=== PATIENT | female | born 1995 | race Caucasian/White ===

== ENCOUNTER 2024-04-26 07:19 | Inpatient (IN) ==
--- OUTSIDE RECORDS SUMMARY | 2024-04-26 07:37 | External Medical Summary | Summary of Care ---
Author Name Unknown Organization [facility] [address] [address] Phone [phone] Care Team Providers Care Radiographic Technologist Name Role Phone Unavailable Primary Care Provider Unavailabl e Encounter Details Date Type Department Care Team (Late st Contact Info) Description 04/24/2024 Telephone Gynecology/Obstetrics [facility] [address] [place] [address] Vanessa Jackson PA-C [address] [place] [address] Allergies No known active allergiesdocumented as of this encounter (statuses as of 04/25/2024) Medications 28-0.8 MG Oral Tablet Take by mouth. Activ e Breast PumpIndication s:Supervision of normal first , antepartum Use as directed while 1 Each Active documented as of this encounter (statuses as of 04/25/2024) Active Problems Problem Noted Date Diagnosed Date Supervision of normal first , antepartu m 09/29/2023 History of anorexia nervosa 09/29/2023 Overview (09/29/2023): Pt agreeable to weight at each visit, but does not want to know number unless medically necessary to discuss. Estimated Date of Delivery Comme nts Yes 04/28/2024 Based on Ultraso und documented as of this encounter (statuses as of 04/25/2024) Immunizations Name Administration Dates Next Due TDAP, Age 7 and older, IM (Adacel) 02/11/2024 documented as of this encounter Social History Tobacco Use Types Packs/Day Years Used Date Smoking Tobacco: Never Smokeless Tobacco: Never Alcohol Use Standard Drinks/Week Comments Not Currently 0 (1 standard drink = 0.6 oz pur e alcohol) Hunger Vital Sign Answer Date Recorded Within the past 12 months, y ou worried that your food would run out before you got the money to buy more. Never true 12/27/19 24 Within the past 12 months, t he food you bought just didn't last and you didn't have money to get more. Never true 12/27/2023 [place] Depression Scale Answer Date Recorded [place] Depression Scale Total 8 04/03/2024 The thought of harming myself has occurred to me . Never 04/03/2024 Childcare Answer Date Recorded Do you feel overwhelmed with taking care of a child, family member or friend? No 12/27/2023 Does your family need help f inding childcare? (Household - for ages 0-17 years) Not on file 12/27/2023 Clothing Answer Date Recorded Have you been unable to get clothing when it was really needed? No 12/27/2023 Is your family able to get c lothes or diapers when needed? (Household - for ages 0-17 years) Not on file 12/27/2023 Personal Safety Answer Date Recorded Do you feel unsafe or have concerns for your saf ety? No 12/27/2023 Do you have concerns for you r family's safety? (Household - for ages 0-17 years) Not on file 12/27/2023 Utilities Answer Date Recorded Do you have trouble paying y our heating, water, or electric bill? No 12/27/2023 Is your family able to pay t he heat, water, or electric bill? (Household - for ages 0-17 years) Not on file 12/27/2023 Does your family have access to good internet? (Household - for ages 0-17 years) Not on file 12/27/2023 Employment Status Answer Date Recorded Are you unemployed or without regular income? No 12/27/2023 Does the household have a re gular source of income? (Household - for ages 0-17 years) Not on file 12/27/2023 Social Connections Answer Date Recorded How often do you feel lonely or isolated from th ose around you? Never 12/27/2023 Financial Resource Strain Answer Date R ecorded Do you have any trouble payi ng for your medications, or do you think you might in the future? No 12/27/2023 Does your family have troubl e paying for medicine? (Household - for ages 0-17 years) Not on file 12/27/2023 Transportation Needs Answer Date Record ed Do you have trouble getting a ride to medical visits or work? (Adult - for ages 18 years and over) Not on file 12/27/2023 Does your family have a hard time getting a ride to doctors visits? (Household - for ages 0-17 years) Not on file 12/27/2023 Has lack of transportation k ept you from medical appointments, meetings, work, or from getting things needed for daily living? Check all that apply. No 12/27/2023 Do you (or your family) have trouble finding or paying for a ride (transportation)? (Household - for ages 0-17 years) Not on file 12/27/2023 Housing Stability Answer Date Recorded Do you currently live in a s helter or have no steady place to sleep at night? No 12/27/2023 Do you think you are at risk of becoming homeless? (Adult - for ages 18 years and over) Not on file 12/27/2023 Does your family worry about paying for your home or becoming homeless? (Household - for ages 0-17 years) Not on file 1 02/25/2023 Are you homeless or worried that you might be in the future? No 12/27/2023 Are you (or your family) floyd eless or worried that you might be in the future? (Household - for ages 0-17 years) Not on file Food Insecurity Answer Date Recorded Do you need food for this week? No 12/27/2023 Are you able to get enough f ood for your family? (Household - for ages 0-17 years) Not on file 12/27/2023 Does your family need food t his week? (Household - for ages 0-17 years) Not on file 12/27/2023 Do you always have enough fo od for your family? (Household - for ages 0-17 years) Not on file 12/27/2023 Food Insecurity Answer Date Recorded Within the past 12 months, y ou worried that your food would run out before you got the money to buy more. Never true 12/27/19 24 Within the past 12 months, t he food you bought just didn't last and you didn't have money to get more. Never true 12/27/2023 Do you need food for this week? No 12/27/2023 Estimated Date of Delivery Comme nts Yes 04/28/2024 Based on Ultraso und Sex and Gender Information Value Date Recorded Sex Assigned at Female 10/13/2023 9:45 AM EDT Legal Sex Female 8:33 AM EDT Gender Identity Female 10/13/2023 9:45 AM EDT Sexual Orientation Straight 10/13/2023 9: 45 AM EDT documented as of this encounter Miscellaneous Notes * Telephone Encounter - Narda Kovacs LPN - 04/25/2024 2:15 PM EDT TIGERTEXT sent to Dr London so he is aware. * Telephone Encounter - Meron Spangler RN - 04/25/2024 1:11 PM EDT Pt returned call. Aware of provider's message and date change for IOL. * Telephone Encounter - Narda Kovacs LPN - 04/25/2024 12:56 PM EDT left message for patient to call office * Telephone Encounter - Shan Trimble MD - 04/25/2024 12:51 PM EDT Yes I called L&D and they moved her to tomorrow Please let her and Dr traveling construction superintendent know Thanks * Telephone Encounter - Narda Kovacs LPN - 04/25/2024 10:33 AM EDT Patient called in saying IOL needs moved up. Can she be scheduled anytime now? * Telephone Encounter - Areli Cagle LPN - 04/24/2024 3:32 PM EDT Patient returned call, she is going to head to L&D * Telephone Encounter - Vanessa Jackson PA-C - 04/24/2024 3:03 PM EDT Sending as FYI as patient is going to call back. If she decides to present to L&D can you just make them aware? If not, she will need scheduled back in 1-[address] Blanco's advise. * Telephone Encounter - Vanessa Jackson PA-C - 04/24/2024 3:01 PM EDT Called patient. Patient reports took tylenol after appointment, ate lunch and drank a lot of water and still has mild headache. Reviewed message regarding presentation to L&D today vs return in 1-2 days for BP check. Patient was going to discuss with partner and plan to call office back here shortly regarding her plan. * Telephone Encounter - Shan Trimble MD - 04/24/2024 2:48 PM EDT P/C ratio pending Isolated slightly increased ALT at 43 ( <35 N), normal AST She may come to L&D if she is not feeling well or BARTHOLOMEW's this evening, if not she may f/u in office in 1-2 days Thanks * Telephone Encounter - Narda Kovacs LPN - 04/24/2024 12:00 PM EDT Vanessa requesting you review patients lab results from today for advice. Has headache with black spots since Wednesday. Tylenol helping minimally, but not taking regularly. Patient reports home blood pressures 130/80s and 120/90 over the weekend. Was in touch with traveling construction superintendent over the weekend, but BP normalized with recheck. Bp in office today 128/88. No protein in site dip but ALT returned elevated. Patient is returning for another OV but with today's labs does she need L+D visit today? documented in this encounter Plan of Treatment Upcoming Encounters Date Type Department Care Team (Late st Contact Info) Description 04/26/2024 9:00 AM EDT Office Visit Gynecology/Obstetrics [facility] [address] [place] [address] Vanessa Jackson PA-C [address] [place] [address] Health Maintenance Due Date Last Done Comments Depression Screening 2008 Hepatitis B Vaccine (1 of - 19+ 3-dose series) 11/11/2015 Pap Smear 2017 COVID-19 Vaccine (2023-2 5 season) 2023 06/03/2020, 05/13/2020 Influenza Vaccine (FLU shot) (#1) 2023 DTap/Tdap Vaccines (2 - Td o r Tdap) 02/10/2034 02/11/2024 HPV (Gardasil) Vaccine Aged Out No lo nger eligible based on patient's age to complete this topic MENINGOCOCCAL (MENACTRA/MENVEO) Aged Out No longer eligible b ased on patient's age to complete this topic Meningitis B Vaccine (Bexsero/Trumemba) Aged Out No longer eligible b ased on patient's age to complete this topic Pneumococcal Vaccine: Pediatrics (0 to 5 Years) and At-Risk Patients (6 to 18 Years and 19+ Years) Aged Out No longer eligible based on patient's age to complete this topic documented as of this encounter Medical Devices Not on filedocumented as of this encounter
--- OUTSIDE RECORDS SUMMARY | 2024-04-26 07:37 | External Medical Summary | Summary of Care ---
Author Name Unknown Organization [facility] Address [address] [address] Phone [phone] Care Team Providers Care Consulting Systems Engineer Name Role Phone Unavailable Primary Care Provider Unavailabl e Encounter Details Date Type Department Care Team (Late st Contact Info) Description 04/24/2024 Telephone Gynecology/Obstetrics [facility] [address] [place] [address] Vanessa Jackson PA-C [address] [place] [phone] Allergies No known active allergiesdocumented as of [...] money to get more. Never true 12/27/2023 [place] Depression Scale Answer Date Recorded [place] Depression Scale Total 8 04/03/2024 The thought [...] encounter Miscellaneous Notes * Telephone Encounter - Areli Cagle LPN [...] over the weekend. Was in touch with recreation program specialist over the weekend, but BP normalized with recheck. Bp in office today 128/88. No protein in site dip but ALT returned elevated. Patient is returning for another OV but with today's labs does she need L+D visit today? documented in this encounter Plan of Treatment Upcoming Encounters Date Type Department Care Team (Late st Contact Info) Description 04/27/2024 8:15 AM EDT Office Visit Gynecology/Obstetrics [facility] [address] [place] [address] Elfego Medel MD [address] [place] [address] Health Maintenance Due Date Last Done Comments Depression Screening 2008 Hepatitis B Vaccine (1 of 3 - 19+ 3-dose series) 11/11/2015 Pap Smear [...]
--- OUTSIDE RECORDS SUMMARY | 2024-04-26 07:37 | External Medical Summary | Summary of Care ---
Author Name Unknown Organization [facility] Address [address] [facility] [place] [address] Phone [phone] Care Team Providers Care Architectural Drafter Name Role Phone Unavailable Primary Care Provider Unavailabl e Encounter Details Date Type Department Care Team (Late st Contact Info) Description 04/24/2024 Telephone Gynecology/Obstetrics [facility] [address] [place] [address] Vanessa Jackson PA-C [address] [place] [address] Allergies No known active allergiesdocumented as of [...] money to get more. Never true 12/27/2023 [place] Depression Scale Answer Date Recorded [place] Depression Scale Total 8 04/03/2024 The thought [...] to tomorrow Please let her and Dr staff electronic warfare officer know Thanks * Telephone Encounter - Narda [...] over the weekend. Was in touch with staff electronic warfare officer over the weekend, but BP normalized with [...] Gynecology/Obstetrics [facility] [address] [place] [address] Vanessa Jackson PA-C [address] [address] Health Maintenance Due Date Last Done Comments [...]
--- OUTSIDE RECORDS SUMMARY | 2024-04-26 07:37 | External Medical Summary | Summary of Care ---
Author Name Unknown Organization [facility] Address [address] [facility] [facility] [address] Phone [phone] Care Team Providers Care Folder Tier Name Role Phone Unavailable Primary Care Provider Unavailabl e Encounter Details Date Type Department Care Team (Late st Contact Info) Description 04/24/2024 Telephone Gynecology/Obstetrics [facility] [address] [place] [address] Vanessa Jackson PA-C [address] [address] Allergies No known active allergiesdocumented as of [...] money to get more. Never true 12/27/2023 [place] Depression Scale Answer Date Recorded [place] Depression Scale Total 8 04/03/2024 The thought [...] encounter Miscellaneous Notes * Telephone Encounter - Meron Spangler RN [...] to tomorrow Please let her and Dr manager personnel selection know Thanks * Telephone Encounter - Narda [...] over the weekend. Was in touch with manager personnel selection over the weekend, but BP normalized with [...] 04/26/2024 9:00 AM EDT Office Visit Gynecology/Obstetrics [facility] [address] [place] [address] Vanessa Jackson PA-C [address] [address] Health Maintenance Due Date Last Done Comments Depression Screening 2008 Hepatitis B Vaccine (1 of 3 - 19+ 3-dose series) 11/11/2015 Pap Smear 2017 COVID-19 Vaccine ( - 2023-2 5 season) 2023 06/03/2020, 05/13/2020 Influenza Vaccine [...]
--- OUTSIDE RECORDS SUMMARY | 2024-04-26 07:37 | External Medical Summary | Summary of Care ---
Author Name Unknown Organization [facility] Address [address] [facility] [place] [address] Phone [phone] Care Team Providers Care Well Site Drilling Engineer Name Role Phone Unavailable Primary Care Provider Unavailabl e Encounter Details Date Type Department Care Team (Late st Contact Info) Description 04/24/2024 Telephone Gynecology/Obstetrics [facility] [address] [place] [address] Vanessa Jackson PA-C [address] [place] [address] Allergies No known active allergiesdocumented as of [...] money to get more. Never true 12/27/2023 [place] Depression Scale Answer Date Recorded [place] Depression Scale Total 8 04/03/2024 The thought [...] to tomorrow Please let her and Dr director of clinical education know Thanks * Telephone Encounter - Narda [...] over the weekend. Was in touch with director of clinical education over the weekend, but BP normalized with [...] Gynecology/Obstetrics [facility] [address] [place] [address] Vanessa Jackson PA-C [address] [place] [address] Health Maintenance Due Date Last Done Comments [...]
--- OUTSIDE RECORDS SUMMARY | 2024-04-26 07:37 | External Medical Summary | Summary of Care ---
Author Name Unknown Organization [facility] Address [address] [address] Phone [phone] Care Team Providers Care Carpenter Helper Hardwood Flooring Name Role Phone Unavailable Primary Care Provider Unavailabl e Encounter Details Date Type Department Care Team (Late st Contact Info) Description 04/24/2024 Telephone Gynecology/Obstetrics [facility] [address] [place] [address] Vanessa Jackson PA-C [address] [place] [address] Allergies No known active allergiesdocumented as of [...] money to get more. Never true 12/27/2023 [place] Depression Scale Answer Date Recorded [place] Depression Scale Total 8 04/03/2024 The thought [...] to tomorrow Please let her and Dr certifed refrigeration operator know Thanks * Telephone Encounter - Narda [...] over the weekend. Was in touch with certifed refrigeration operator over the weekend, but BP normalized with [...] Gynecology/Obstetrics [facility] [address] [place] [address] Vanessa Jackson PA-C [address] [address] Health Maintenance Due Date Last Done Comments [...]
--- OUTSIDE RECORDS SUMMARY | 2024-04-26 07:37 | External Medical Summary | Summary of Care ---
Author Name Unknown Organization [facility] Address [address] [place] [address] Phone [phone] Care Team Providers Care Thermodynamics Teacher Name Role Phone Unavailable Primary Care Provider Unavailabl e Encounter Details Date Type Department Care Team (Late st Contact Info) Description 04/24/2024 Telephone Gynecology/Obstetrics [facility] [address] [place] [address] Vanessa Jackson PA-C [address] [address] Allergies No known active allergiesdocumented as of [...] money to get more. Never true 12/27/2023 [place] Depression Scale Answer Date Recorded [place] Depression Scale Total 8 04/03/2024 The thought [...] to tomorrow Please let her and Dr cotton grower know Thanks * Telephone Encounter - Narda [...] 1-2 days Thanks * Telephone Encounter - Nrada Kovacs LPN - 04/24/2024 12:00 PM EDT Vanessa requesting you review patients lab results from today for advice. Has headache with black spots since Wednesday. Tylenol helping minimally, but not taking regularly. Patient reports home blood pressures 130/80s and 120/90 over the weekend. Was in touch with cotton grower over the weekend, but BP normalized with [...] Gynecology/Obstetrics [facility] [address] [place] [address] Vanessa Jackson PA-C [address] [address] Health Maintenance Due Date Last Done Comments [...]
--- OUTSIDE RECORDS SUMMARY | 2024-04-26 07:37 | External Medical Summary | Summary of Care ---
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 Activ e Breast PumpIndication s:Supervision of normal first , antepartum Use as directed while 1 Each Active documented as of this encounter (statuses as of 04/24/2024) Active Problems Problem Noted Date Diagnosed Date Supervision of normal first , antepartu m 09/29/2023 History of anorexia nervosa 09/29/2023 Overview (09/29/2023): Pt agreeable to weight at each visit, but does not want to know number unless medically necessary to discuss. Estimated Date of Delivery Comme nts Yes 04/28/2024 Based on Ultraso und documented as of this encounter (statuses as of 04/24/2024) Immunizations Name Administration Dates Next Due TDAP, [...] money to get more. Never true 12/27/2023 [place] Depression Scale Answer Date Recorded [place] Depression Scale Total 8 04/03/2024 The thought [...] AM EDT documented as of this encounter Last Filed Vital Signs Vital Sign Reading Time Taken Comments Blood Pressure 128/88 04/24/2024 9:43 AM EDT Pulse - - Temperature - - Respiratory Rate - - Oxygen Saturation - - Inhaled Oxygen Concentration - - Weight 78.8 kg (173 lb 12.8 oz) 04/24/2024 9:43 AM EDT Height - - Body Mass Index 31.79 03/31/2024 1:08 PM EST documented in this encounter Progress Notes * Vanessa Jackson PA-C - 04/24/2024 9:51 AM EDT 39w3d Concerns for elevated Bps over weekend d/t severe headache. Has neighbor who was nurse check. 130/80s with two of the checks. One approx 120/90. Called instrumentation supervisor and advised check in an hour. She did and normal. Pt reports tylenol helping with headache but has not fully gone away. Seeing black spots in vision at times. Denies RUQ, epigastric pain, CP, or SOB. Blood pressure today 128/88. Has not taken tylenol today. Took 650 mg last night. Admits typically drinks caffeine but has not over last few days. Bought coffee today but has not drank. Denies VB, LOF, contractions. Has had milky white discharge for over a week. Was evaluated last week and ROM + negative, exam without pooling. Pt states no increase in discharge or change. Denies anygush, watery or clear discharge. Was concerned about 10 movements in 2 hours last week, got them but took some time. Pt states easily getting 10 movements today. No concerns for decreased FM. Would like cervical check and if able membrane sweep. Cervix posterior. Unable to perform membrane sweep. No proteins by site dip. Advised labs today. RTC in 3 days for [place]/BP check PEC precautions reviewed with her Vanessa Jackson PA-C * Nydia Rose CMA - 04/24/2024 9:43 AM EDT 39w3d Requesting cervical check and possible membrane sweep. documented in this encounter Plan of Treatment Upcoming Encounters Date Type Department Care Team (Late st Contact Info) Description 04/27/2024 8:15 AM EDT Office Visit Gynecology/Obstetrics [facility] [address] [place] [id number] Elfego Medel MD [address] [place] [phone] Pending Results Name Type Priority Associated Diagnoses Date /Time PROTEIN/ CREATININE RATIO, URINE Lab Routine Supervision of normal first , antepartum 04/24/2024 10:13 AM EDT Health Maintenance Due Date Last Done Comments [...] Not on filedocumented as of this encounter Procedures Procedure Name Priority Date/Time Associated Diagnosis Comments COMPREHENSIVE METABOLIC PANEL Routine 04/24/2024 10:28 AM EDT Supervision of normal first , antepartum CBC Routine 04/24/2024 10:28 AM EDT Supervision of normal first , antepartum URINALYSIS OBSTETRICS, POINT OF CARE ITA 04/24/2024 9:52 AM EDT documented in this encounter Results * CBC (04/24/2024 10:28 AM EDT) WBC 7.68 4.00 - 10.80 K/uL 04/24/2024 10:36 AM EDT [facility] [place] [facility] RBC 4.25 3.85 - 5.15 M/uL 04/24/2024 10:36 AM EDT [facility] [place] [facility]10 HGB 12.5 12.0 - 15.3 g/dL 04/24/2024 10:36 AM EDT [facility] [place] [facility]10 HCT 37.7 36.0 - 45.2 % 04/24/2024 10:36 AM EDT [facility] [place] [facility]10 MCV 88.7 81.5 - 97.5 fL 04/24/2024 10:36 AM EDT [facility] [place] [facility]10 MCH 29.4 27.0 - 34.0 pg 04/24/2024 10:36 AM EDT [facility] [place] [facility]10 MCHC 33.2 32.0 - 36.0 g/dL 04/24/2024 10:36 AM EDT [facility] [place] [facility]10 RDW 13.6 11.5 - 15.5 % 04/24/2024 10:36 AM EDT [facility] [place] [facility]10 PLT 216 140 - 400 K/uL 04/24/2024 10:36 AM EDT [facility] [place] [facility]10 MPV 12.1 6.6 - 11.1 fL 04/24/2024 10:36 AM EDT [facility] [place] [facility]10 Blood Venous blood specimen / Unknown Venipuncture / Unknown 04/24/2024 10:28 AM EDT 04/24/2024 10:28 AM EDT us Vanessa Jackson PA-C LAB BLOOD ORDERABLES Final R esult [facility] [place] [facility] [address] [facility] [place] [address] * (ABNORMAL) COMPREHENSIVE METABOLIC PANEL (04/24/2024 10:28 AM EDT) BUN 5(L) 6 - 20 mg/dL 04/24/2024 11:36 AM EDT [facility] [place] [facility]10 CREATININE 0.6 0.5 - 1.0 mg/dL 04/24/2024 11:36 AM EDT [facility] [place] [facility]10 EGFR >90 >=60 mL/min 04/24/2024 11:36 AM EDT [facility] [place] [facility]10 Comment:eGFR is calculated b ased on the CKD-EPI 2020 equation. SODIUM 138 135 - 146 mmol/L 04/24/2024 11:36 AM EDT [facility] [place] [facility]10 POTASSIUM 4.8 3.5 - 5.1 mmol/L 04/24/2024 11:36 AM EDT [facility] [place] [facility]10 CHLORIDE 101 98 - 107 mmol/L 04/24/2024 11:36 AM EDT [facility] [place] [facility]10 CO2 24 22 - 32 mmol/L 04/24/2024 11:36 AM EDT [facility] [place] [facility]10 ANION GAP 13 7 - 15 mmol/L 04/24/2024 11:36 AM EDT [facility] [place] [facility]10 GLUCOSE 74 70 - 120 mg/dL 04/24/2024 11:36 AM EDT [facility] [place] [facility]10 Albumin 3.6(L) 3.8 - 5.0 g/dL 04/24/2024 11:36 AM EDT [facility] [place] [facility]10 AST 28 10 - 35 U/L 04/24/2024 11:36 AM EDT [facility]10 Alkaline Phosphatase 186(H) 35 - 130 U/L 04/24/2024 11:36 AM EDT [facility] 57-10 Bilirubin, Total <0.2 <=1.2 mg/dL 04/24/2024 11:36 AM EDT [facility] 57-10 CALCIUM 9.5 8.4 - 10.2 mg/dL 04/24/2024 11:36 AM EDT [facility] 57-10 Protein 6.7 6.0 - 8.3 g/dL 04/24/2024 11:36 AM EDT [facility] [place] [facility]10 ALT 43(H) 10 - 35 U/L 04/24/2024 11:36 AM EDT [facility] 57-10 Blood Venous blood specimen / Unknown Venipuncture / Unknown 04/24/2024 10:28 AM EDT 04/24/2024 10:28 AM EDT us Vanessa Jackson PA-C LAB BLOOD ORDERABLES Final R esult [facility] [place] [facility]10 [address] [facility] [place] [address] * (ABNORMAL) URINALYSIS OBSTETRICS, POINT OF CARE (04/24/2024 9:52 AM EDT) Color, Urine Yellow Light Yellow, Yellow 04/24/2024 9:54 AM EDT [facility] [place] [facility]10 Clarity, Urine Clear Clear 04/24/2024 9:54 AM EDT [facility] [place] [facility]10 Glucose, Urine Negative Negative mg/dL 04/24/2024 9:54 AM EDT [facility] [place] [facility]10 Bilirubin, Urine Negative Negative 04/24/2024 9:54 AM EDT [facility] [place] [facility]10 Ketone, Urine Negative Negative mg/dL 04/24/2024 9:54 AM EDT [facility] [place] [facility]10 Specific Candor, Urine 1.020 1.003 - 1.030 04/24/2024 9:54 AM EDT [facility] [place] [facility]10 Blood, Urine Negative Negative 04/24/2024 9:54 AM EDT [facility] [place] [facility]10 pH, Urine 6.5 5.0, 5.5, 6.0, 6.5, 7.0, 7.5 units 04/24/2024 9:54 AM EDT [facility] [place] [facility]10 Protein, Urine Negative Negative mg/dL 04/24/2024 9:54 AM EDT [facility] [place] [facility]10 Urobilinogen, Urine 0.2 0.2, 1.0 mg/dL 04/24/2024 9:54 AM EDT [facility] [place] [facility]10 Nitrite, Urine Negative Negative 04/24/2024 9:54 AM EDT [facility] [place] [facility]10 Esterase, Urine Trace(A) Negative 04/24/2024 9:54 AM EDT [facility] [place] [facility]10 Urine 04/24/2024 9:52 AM EDT 04/24/2024 9:54 AM EDT Vanessa Jackson PA-C LAB POINT OF CARE TE ST DOCKED DEVICE UNSOLICITED RESULTS Final Result [facility] [place] [facility] [address] [facility] [place] [address] documented in this encounter Visit Diagnoses Diagnosis Supervision of normal first , antepartum- Primary History of anorexia nervosa Personal history of other mental disorder documented in this encounter
--- OUTSIDE RECORDS SUMMARY | 2024-04-26 07:38 | External Medical Summary ---
Author Name Unknown Address Unknown Organization [id number]:[facility] [address] [place] [address] Laboratory Report Ordering Provider Test Date Status ALFREDKIERRA 04/24/2024 10:13:21 Final Normal: <150 mg/ g creatinine
High: 150-500 mg/g creatinine
Very High: >500 mg/g creatinine
Nephrotic: >3000 mg/g creatinine Observation Date Value Abnormality Reference (Units ) Status Protein/Creatinine [Ratio] in Urine 04/24/2024 10:13:21 127 <150 (mg/g ) Final Protein, Urine 04/24/2024 10:13:21 10 (mg/dL) Final Creatinine, Urine 04/24/2024 10:13:21 79 (mg/dL) Final Performing Location [facility] - [address] [place] [address]
[2024-04-26] MEDS ORDERED: OXYTOCIN 30 UNITS/NSS 30 UNITS/500 ML BAG IV PRN ×2 (09:01→23:31)
[2024-04-26] MEDS ORDERED: LIDOCAINE 1% LOCAL 20 ML VIAL INFIL PRN (09:01)
--- NOTE | 2024-04-26 09:13 | History & Physical Report ---
Date of Service April 26, 2024 Assessment & Plan Admission and Anticipated Discharge Date Admission Date: April 26, 2024 History of Present Illness Chief Complaint: induction of labor Primary Care Provider: NO PCP 28 F P0000 at 39.5 weeks presents to L&D for induction due to elevated BP in the office. GBS is negative. Allergies Allergy/AdvReac Type Severity Reaction Status Date / Time No Known Allergies Allergy Unverified 04/26/24 09:02 Home Medications Medication Instructions Recorded Confirmed Type vits no.124-ferrous fum 1 tab PO DAILY 04/26/24 04/26/24 History 27 mg iron-folic acid 800 mcg tablet ( Vitamin) Patient History Family History Mother Rheumatoid arthritis Substance use disorder Father Hypertension Sister Age: 24 No problems noted. Grandmother (Maternal) Ovarian cancer Substance use disorder Grandfather (Maternal) Diabetes Type 2 diabetes Coronary heart disease Grandmother (Paternal) Coronary heart disease Dyslipidemia Cholesterol in 600s Myocardial infarction Fatal [place] age 33 Social History Smoking Status: Never smoker Second Hand Exposure: No; Hx Alcohol Use: No Hx Substance Use: No Preferred Language: Macedonian Communication Ability: Effective Lumber Sorter Machine Required: No Beliefs That Will Affect Care: None marital status: Current Living Situation: Spouse Current Living Situation Comment: Lives w/parents but stays most of the time with supportive boyfriend/partne current occupational status: employed 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 Other Information That Helps Us Care for You: No Feels Safe at Home: Yes Safety Concerns: Feels Safe At This Time Physical Activity Frequency: 5-6 Times per Week Assistive Devices: None OB History primip MINE EXPERT History neg Review of Systems All systems reviewed & are unremarkable except as noted in HPI & below Physical Exam Constitutional: WD/WN, vitals as above Eyes: PERRL, conjunctivae normal, anicteric sclerae Respiratory: normal respiratory effort, lungs clear to auscultation Cardiovascular: Rate/Rhythm: regular rate and regular rhythm Gastrointestinal (Abdomen): Inspection/Auscultation: abdomen normal to inspection Musculoskeletal: Extremities: extremities normal to inspection Skin: no rashes, warm and dry Neurologic: patellar DTR's 2+ bilat, sensation intact Psychiatric: A+Ox3, euthymic affect Genitourinary: Manual OB Exam: + cervical dilation fingertip, + cervical effacement 50% and + station high OB Exam Monitor Tracing: + external FHT monitor used, + external uterine monitor used, + category I and + normal FHT variability cervix L/C/T. posterior/firm. EFW 7.5 lbs. Will start induction with Cervidil for cervical ripening. Results & Data Vital Signs (Past 12 Hours) Vital Signs Temp Pulse Resp BP 04/26/24 07:33 36.7 C 18 04/26/24 07:30 85 124/80 Monitoring External Monitor Cat 1
[2024-04-26 09:35] LABS: Hematocrit (blood only) 34.8 % (37.0-47.0); Hemoglobin 11.6 g/dl (12.0-16.0); Mean Corpuscular Hemoglobin 28.5 pg (25.0-34.0); Mean Corpuscular Hgb Conc 33.3 g/dL (32.0-36.0); Mean Corpuscular Volume 85.5 fL (80.0-100.0); Platelet Count 216 K/uL (130-400); RDW Coefficient of Variation 13.2 % (11.5-14.5); RDW Standard Deviation 41.1 fL (36.4-46.3); Red Blood Count 4.07 M/uL (4.20-5.40); White Blood Count 9.42 K/ul (4.8-10.8)
[2024-04-26] MEDS: DINOPROSTONE 10 MG INSERT PV ONE (09:35)
--- NOTE | 2024-04-26 09:42 | Labor Progress Brief Note ---
Date of Service April 26, 2024 Assessment & Plan Admission and Anticipated Discharge Date Admission Date: April 26, 2024 Physical Exam Genitourinary: OB Exam Monitor Tracing: + external FHT monitor used, + external uterine monitor used, + category I and + normal FHT variability Cervidil placed vaginally Results & Data Vital Signs (Past 12 Hours) Vital Signs Temp Pulse Resp BP 04/26/24 07:33 36.7 C 18 04/26/24 07:30 85 124/80
[2024-04-26] MEDS: LACTATED RINGER'S 1,000 ML IV PRN (14:55)
[2024-04-26] MEDS: BUTORPHANOL TARTRATE 1 MG/ML VIAL IV ONE ×2 (15:45→18:10)
[2024-04-26] MEDS ORDERED: NALBUPHINE HCL INJ 10 MG/ML AMP IV PRN (19:39)
[2024-04-26] MEDS ORDERED: diphenhydrAMINE 50 MG/ML VIAL IV PRN (19:39)
[2024-04-26] MEDS ORDERED: SODIUM CHLORIDE 0.9% PF INJ 10 ML VIAL EPI PRN (19:39)
[2024-04-26] MEDS ORDERED: fentaNYL citrate PF 100 MCG/2 ML VIAL EPI PRN (19:39)
[2024-04-26] MEDS ORDERED: NALOXONE HCL 0.4 MG/1 ML VIAL/CARP IV PRN (19:39)
[2024-04-26] MEDS ORDERED: NALOXONE HCL 1 MG in SODIUM CHLORIDE 0.9% 1,000 ML IV PRN (19:39)
[2024-04-26] MEDS ORDERED: LIDOCAINE 2% MPF LOCAL 5 ML VIAL EPI PRN (19:39)
[2024-04-26] MEDS ORDERED: ROPIVACAINE 0.5% PF 5 MG/ML 20 ML VIAL EPI PRN (19:39)
[2024-04-26] MEDS ORDERED: ePHEDrine sulfate 50 MG/ML AMP IV PRN (19:39)
[2024-04-26] MEDS ORDERED: BUPIVACAINE 0.25% PF 30 ML VIAL EPI PRN (19:39)
--- NOTE | 2024-04-26 19:43 | Anesthesiology Consultation ---
Date of Service April 26, 2024 Assessment & Plan Chart Review Chart Review: Patient NOT seen in Pre Admission Testing and Acceptable Risk for Labor Epidural Consults Requested none ASA ASA2 Proposed Anesthesia Anesthesia Type: Labor Epidural Risk / Benefits Reviewed With: PT / POA / Parent / Guardian, Accepts Plan and Informed Consent Obtained History Height/Weight Height: 5 ft 2 in Weight: 78.471 kg Allergies Allergy/AdvReac Type Severity Reaction Status Date / Time No Known Allergies Allergy Unverified 04/26/24 09:02 Medications Home Medications Medication Instructions Recorded Confirmed Last Taken vits no.124-ferrous fum 1 tab PO DAILY 04/26/24 04/26/24 Unknown 27 mg iron-folic acid 800 mcg tablet ( Vitamin) Active Medications Generic Name Dose Route Start Last Admin Trade Name Freq PRN Reason Stop Dose Admin Lactated Ringer's 1,000 mls @ 125 mls/hr 04/26/24 09:01 04/26/24 19:00 Lr IV 04/27/24 09:00 999 mls/hr .Q8H PRN Infusion L&D Protocol Protocol NPO Date Last Intake of Fluids: 04/26/24 Time Last Intake of Fluids: 19:30 Date Last Intake of Solids: 04/26/24 Time Last Intake of Solids: 11:00 Exercise / Class Metabolic Activity 1 > 8 Run/Swim/Ski/Tennis Past Family History Family History Mother Rheumatoid arthritis Substance use disorder Father Hypertension Sister Age: 24 No problems noted. Grandmother (Maternal) Ovarian cancer Substance use disorder Grandfather (Maternal) Diabetes Type 2 diabetes Coronary heart disease Grandmother (Paternal) Coronary heart disease Dyslipidemia Cholesterol in 600s Myocardial infarction Fatal CT age 32 Past Anesthesia History No Hx of Anesthesia Complications and No Family Hx of Anesthesia Complications History of PONV No Hx of PONV and No Hx of Motion Sickness Social History Smoking Status: Never smoker Hx Alcohol Use: No Hx Substance Use: No substance use type: does not use Review of Systems ROS Unobtainable: All systems reviewed & are unremarkable except as noted in HPI & below Physical Exam Vital Signs Last Vital Signs Temp 36.7 C 04/26/24 14:52 Pulse 86 04/26/24 19:38 Resp 16 04/26/24 18:10 BP 123/61 04/26/24 19:13 Pulse Ox 93 04/26/24 19:38 ENMT Mouth: no TMJ abnormality Thyromental Distance: > or= 3.5 Finger Breadths Mallampati Class: II Neck normal visual inspection and trachea midline; neck extension not limited Respiratory normal respiratory effort Auscultation: lungs clear to auscultation bilaterally Cardiovascular Rate/Rhythm: regular rate and regular rhythm Heart Sounds: no murmur Musculoskeletal Spine: normal cervical ROM Extremities: full ROM of extremities Neurologic moves all extremities Psychiatric Orientation: alert and oriented x 3 Testing Laboratory Results 04/26/24 09:13
[2024-04-26] MEDS: fentANYL 2 MCG/ML BUPIVacaine 0.125%-NSS 100ML BAG EPI PRN (19:57)
[2024-04-26] MEDS: BUPIVACAINE 0.25% PF 30 ML VIAL EPI STA (19:57)
[2024-04-26] MEDS: fentaNYL citrate PF 100 MCG/2 ML VIAL EPI STA (19:57)
--- NOTE | 2024-04-26 20:15 | Labor Progress Brief Note ---
Date of Service April 26, 2024 Assessment & Plan Admission and Anticipated Discharge Date Admission Date: April 26, 2024 Physical Exam Genitourinary: Manual OB Exam: + cervical dilation 8 cm, + cervical effacement 100%, + station 0 and + amniotic fluid clear OB Exam Monitor Tracing: + external FHT monitor used, + external uterine monitor used, + category I and + normal FHT variability AROM with Amni-hook bloody show with clear fluid noted Results & Data Vital Signs (Past 12 Hours) Vital Signs Temp Pulse Resp BP Pulse Ox 04/26/24 20:09 106 H 04/26/24 20:09 109/68 04/26/24 20:08 96 04/26/24 20:08 101 H 04/26/24 20:03 96 04/26/24 20:03 118 H 04/26/24 20:02 81 04/26/24 20:02 120/72 04/26/24 20:00 93 H 04/26/24 20:00 113/74 04/26/24 19:58 98 04/26/24 19:58 79 04/26/24 19:58 149/65 H 04/26/24 19:56 87 04/26/24 19:56 137/68 04/26/24 19:53 96 04/26/24 19:53 79 04/26/24 19:48 98 04/26/24 19:48 76 04/26/24 19:43 100 04/26/24 19:43 84 04/26/24 19:38 93 04/26/24 19:38 86 04/26/24 19:37 93 04/26/24 19:37 75 04/26/24 19:33 97 04/26/24 19:33 91 H 04/26/24 19:13 96 H 04/26/24 19:13 123/61 04/26/24 18:44 67 04/26/24 18:44 99/58 L 04/26/24 18:10 16 04/26/24 18:10 16 04/26/24 18:10 85 04/26/24 18:10 120/58 L 04/26/24 17:19 69 04/26/24 17:19 108/63 04/26/24 16:49 85 04/26/24 16:49 114/57 L 04/26/24 16:19 18 04/26/24 16:19 18 04/26/24 16:19 82 04/26/24 16:19 113/62 04/26/24 15:48 78 04/26/24 15:48 107/58 L 04/26/24 14:53 85 04/26/24 14:53 125/72 04/26/24 14:52 20 04/26/24 14:52 36.7 C 20 04/26/24 11:37 88 04/26/24 11:37 118/76 04/26/24 11:36 16 04/26/24 11:36 36.6 C 16
[2024-04-26] MEDS: fentANYL 2 MCG/ML BUPIVacaine 0.125%-NSS 100ML BAG ONE (20:34)
[2024-04-26] MEDS: LIDOCAINE 2%/EPINEPHRINE 1:200,000 20 ML PF EPI STA (20:34)
[2024-04-26] MEDS: LIDOCAINE 2%/EPINEPHRINE 1:200,000 20 ML PF ONE (20:34)
[2024-04-26] MEDS: ePHEDrine sulfate 50 MG/ML AMP ONE (20:34)
[2024-04-26] MEDS: SODIUM CHLORIDE 0.9% PF INJ 10 ML VIAL EPI STA (20:34)
[2024-04-26] MEDS: fentaNYL citrate PF 100 MCG/2 ML VIAL ONE (20:34)
[2024-04-26] MEDS: SODIUM CHLORIDE 0.9% PF INJ 10 ML VIAL ONE (20:34)
[2024-04-26] MEDS: BUPIVACAINE 0.25% PF 30 ML VIAL ONE (20:35)
[2024-04-26] MEDS: OXYTOCIN 30 UNITS/NSS 30 UNITS/500 ML BAG IV PRN (21:41)
[2024-04-26] MEDS ORDERED: BENZOCAINE 20% SPRY 85 APPLN/85 GM CAN EXT PRN (23:31)
[2024-04-26] MEDS ORDERED: HYDROCORTISONE ACETATE 25 MG SUPP PR PRN (23:31)
--- NOTE | 2024-04-26 23:33 | Delivery Summary ---
Vaginal Delivery Summary Date of Service April 26, 2024 Vaginal Delivery Summary live female ASHLEY over intact perineum with nuchal cord x1 reduced at delivery of head. Delayed cord clamping followed by spontaneous delivery of intact placenta. First degree tear repaired with 3/0 Vicryl suture. QBL 200 ml. Final sponge, needle and instrument count are correct. Mom and baby stable.
[2024-04-26] MEDS: DIPHTHER/TETAN/PERTUS Vaccine (Tdap, Adol/Adult) 0.5mL IM ONE (23:55)
--- NOTE | 2024-04-27 02:04 | Anesthesia Procedure Note ---
Date of Service April 27, 2024 Anesthesia Post Epidural Note Vital Signs Vital Signs: Temp Pulse Resp BP Pulse Ox O2 Del Method 36.6 C 91 H 16 129/75 95 Room Air 04/27/24 01:20 04/27/24 01:21 04/27/24 01:20 04/27/24 01:21 04/26/24 23:23 04/27/24 01:20 Notes Mental Status: alert / awake / arousable and participated in evaluation Nausea / Vomiting: adequately controlled Pain: adequately controlled Airway Patency, RR, SpO2: stable & adequate BP & HR: stable & adequate Hydration State: stable & adequate Neuraxial Anesthesia: was administered and sensory block is resolving Anesthetic Complications: no major complications apparent Epidural: Removed without complications and With tip intact
[2024-04-27 06:12] LABS: Hematocrit (blood only) 33.4 % (37.0-47.0); Hemoglobin 11.4 g/dl (12.0-16.0); Mean Corpuscular Hemoglobin 28.9 pg (25.0-34.0); Mean Corpuscular Hgb Conc 34.1 g/dL (32.0-36.0); Mean Corpuscular Volume 84.6 fL (80.0-100.0); Mean Platelet Volume 12.1 fL (9.4-12.4); Platelet Count 214 K/uL (130-400); RDW Coefficient of Variation 13.2 % (11.5-14.5); Red Blood Count 3.95 M/uL (4.20-5.40); White Blood Count 14.59 K/ul (4.8-10.8)
[2024-04-27] MEDS: PRENATAL VITAMIN 1 TAB PO SCH (08:34)
[2024-04-27] MEDS: FERROUS SULFATE 325 MG TAB PO SCH (08:34)
[2024-04-27] MEDS: DOCUSATE SODIUM 100 MG CAP PO SCH (08:34)
[2024-04-27] MEDS ORDERED: PRENATAL VITAMIN 1 TAB PO SCH (09:00)
[2024-04-27 09:21] VITALS: O2SAT 97
[2024-04-27] MEDS: ACETAMINOPHEN 325 MG TAB PO PRN (11:30)
--- NOTE | 2024-04-27 15:03 | Obstetrical Progress Note ---
Date of Service April 27, 2024 Assessment & Plan Admission and Anticipated Discharge Date Admission Date: April 26, 2024 Subjective Patient is seen and examined. She feels well, no complaints. Ambulating without dizziness Voiding without difficulty Tolerating regular diet with out N&V Bleeding is minimal No BARTHOLOMEW/ Change in vision/ fever/ chills/ CP/ SOB/ N&V/ Leg pain Breast feeding without problems Vital Signs Temp Pulse Resp BP Pulse Ox O2 Del Method 04/27/24 11:36 36.8 C 83 20 133/88 04/27/24 07:40 36.8 C 81 20 129/82 97 Room Air 04/27/24 04:10 36.7 C 79 16 125/76 Room Air Lab Results 04/26/24 04/27/24 Range/Units 09:13 05:46 WBC 9.42 14.59 H (4.8-10.8) K/ul RBC 4.07 L 3.95 L (4.20-5.40) M/uL Hgb 11.6 L 11.4 L (12.0-16.0) g/dl Hct 34.8 L 33.4 L (37.0-47.0) % MCV 85.5 84.6 (80.0-100.0) fL MCH 28.5 28.9 (25.0-34.0) pg MCHC 33.3 34.1 (32.0-36.0) g/dL RDW Std Deviation 41.1 41.0 (36.4-46.3) fL RDW Coeff of Pineda 13.2 13.2 (11.5-14.5) % Plt Count 216 214 (130-400) K/uL MPV 12.0 12.1 (9.4-12.4) fL Treponema pallidum Ab Negative (Negative) PE: General: Alert, orientedx3, NAD Abd: soft, NT, fundus firm, below Umbilicus Perineum intact, Lochia rubra minimal Ext; NT, no edema AP: 28 yo s/p , ppd# 1 VSS Afebrile doing well Continue routine care All questions were answered D/C home tomorrow Results & Data Vital Signs (Past 12 Hours) Vital Signs Temp Pulse Resp BP Pulse Ox O2 Del Method 04/27/24 11:36 36.8 C 83 20 133/88 04/27/24 07:40 36.8 C 81 20 129/82 97 Room Air 04/27/24 04:10 36.7 C 79 16 125/76 Room Air
[2024-04-27] MEDS: IBUPROFEN 600 MG TAB PO PRN (17:17)
[2024-04-27] MEDS: bisacodyL 5 MG TABEC PO SCH (20:39)
[2024-04-28] MEDS ORDERED: bisacodyL 10 MG SUPP PR PRN
[2024-04-28 06:11] LABS: Hemoglobin 11.5 g/dl (12.0-16.0)
--- NOTE | 2024-04-28 08:50 | Discharge Summary ---
Date of Service April 28, 2024 Admission HPI Per Admitting Provider 28 F P0000 at 39.5 weeks presents to L&D for induction due to elevated BP in the office. GBS is negative. Discharge Data Consultations 04/26/24 09:01 Consult Anesthesiology Stat Procedures Performed [facility] Hospital Course (1) with 39 completed weeks gestation: (2) Hypoglycemia: (3) Depression: (4) Headache in : (5) Dehydration: (6) Uterine contractions during : (7) False labor before 37 completed weeks of gestation: (8) Stress: (9) Fatigue: Plan instructions Pt clinically nd hemodynamically stable to be discharged
[2024-04-28 09:04] VITALS: BP 114/72; PULSE 78; RESP 18; TEMP 97.9
--- NOTE | 2024-04-28 10:53 | Obstetrical Progress Note ---
Date of Service April 28, 2024 Assessment & Plan (1) Vaginal delivery: Present on Admission?: No Plan discharge plan today instructions reviewed follow in the office in 3 weeks and 6 weeks for visit continue PNV , Feso4 Admission and Anticipated Discharge Date Admission Date: April 26, 2024 Subjective s/p , #2 Review of Systems Review of Systems: All systems reviewed & are unremarkable except as noted in HPI & below Constitutional: as per Subjective / HPI Physical Exam Constitutional: WD/WN, vitals as above Respiratory: normal respiratory effort, lungs clear to auscultation Cardiovascular: RRR, no murmur, no edema Genitourinary: deferred Results & Data Vital Signs (Past 12 Hours) Vital Signs Temp Pulse Resp BP Pulse Ox O2 Del Method 04/28/24 09:42 36.6 C 78 18 114/72 97 04/28/24 09:37 36.6 C 78 18 114/72 97 04/28/24 07:10 36.6 C 78 18 114/72 Room Air 04/27/24 23:30 36.4 C L 85 16 131/84 97 Room Air
== END 2024-04-28 11:10 | disposition home or self-care (01) | DRG 807 ==
LOC: 4S1 07:19 → 4E2 04-27 02:08